=== PATIENT | male | born 1990 | race African-American/Black ===

== ENCOUNTER 2021-10-22 08:19 | Emergency (ER) | payer SELFPAY ==
[~2021-10-22] VITALS: Ht 180.3 cm; Wt 79.0 kg
[2021-10-22 09:41] VITALS: BP 140/92
[2021-10-22] MEDS ORDERED: IBUPROFEN 200 MG TABLET. PO ONE (10:15)
--- NOTE | 2021-10-22 10:21 | PHYS DOC ---
Past Medical History Past Surgical History: No Surgical History General Adult EDM: Chief Complaint: HAND PROBLEM HPI: HPI: Patient is a 30 year old male who presents with right hand pain after punching a barbecue grill last night. Patient has full range of motion and sensation intact. Some swelling noted . Denies wrist pain. Rating his pain at 7/10. Pain is aggravated by use. Patient took one Tylenol last night which improved symptoms. Denies medical history. Review of Systems: Review of Systems: ROS At least 10 ROS systems have been reviewed and are negative except as documented in the HPI. General: Negative except as outlined in HPI above. Skin: Negative except as outlined in HPI above. HEENT: Negative except as outlined in HPI above. Neck: Negative except as outlined in HPI above. Respiratory: Negative except as outlined in HPI above.. Cardiovascular: Negative except as outlined in HPI above. Abdomen: Negative except as outlined in HPI above. : Negative except as outlined in HPI above. Back/MSK: Negative except as outlined in HPI above. Neuro: Negative except as outlined in HPI above. Psych: Negative except as outlined in HPI above. Heart Score: C/O Chest Pain: No Risk Factors: Risk Factors: DM, Current or recent (<one month) smoker, HTN, HLP, family history of CAD, obesity. Risk Scores: Score 0 - 3: 2.5% MACE over next 6 weeks - Discharge Home Score 4 - 6: 20.3% MACE over next 6 weeks - Admit for Clinical Observation Score 7 - 10: 72.7% MACE over next 6 weeks - Early Invasive Strategies Allergies: Allergies: Allergies Coded Allergies Type Severity Reaction Last Updated Verified No Known Drug Allergies 10/22/21 No Physical Exam: PE: Constitutional: Well developed, well nourished, no acute distress, non-toxic appearance. [] HENT: Normocephalic, atraumatic, bilateral external ears normal, oropharynx moist, no oral exudates, nose normal. [] Eyes: PERRLA, EOMI, conjunctiva normal, no discharge. [] Neck: Normal range of motion, no tenderness, supple, no stridor. [] Cardiovascular:Heart rate regular rhythm, no murmur [] Lungs & Thorax: Bilateral breath sounds clear to auscultation [] Abdomen: Bowel sounds normal, soft, no tenderness, no masses, no pulsatile mas ses. [] Skin: Warm, dry, no erythema, no rash. [] Back: No tenderness, no CVA tenderness. [] Extremities: Right hand tenderness, ROM intact, some swelling noted, radial pulses intact Neurologic: Alert and oriented X 3, normal motor function, normal sensory function, no focal deficits noted. [] Psychologic: Affect normal, judgement normal, mood normal. [] Current Patient Data: Vital Signs: Vital Signs Date Time Temp Pulse Resp B/P (MAP) Pulse Ox O2 Delivery O2 Flow Rate FiO2 10/22/21 09:41 98.3 65 16 140/92 (108) 100 Room Air 98.3 EKG: EKG: [] Radiology/Procedures: Radiology/Procedures: [] XR HAND_RIGHT 3 VIEWS History: Reason: punched a bbq grill Friday, pain and swelling / Spl. Instructions: / History: Technique: 3 views right hand Comparison: None. Findings: Acute fifth metacarpal base nondisplaced intra-articular fracture. There is adjacent soft tissue swelling. No dislocation. Impression: 1. Acute fifth metacarpal base nondisplaced intra-articular fracture. Electronically signed by: Abdi Lopez DO (10/22/2021 10:47 AM) [id number] Course & Med Decision Making: Course & Med Decision Making Pertinent Labs and Imaging studies reviewed. (See chart for details) [] 30-year-old male who presents with right hand pain after punching a barbecue grill last night. Pain was treated in the ER. X-ray of right hand ordered to rule out fracture. X-ray shows nondisplaced, fifth metacarpal fracture. Middle finger and ring finger were marisol taped. Educated patient on RICE. Ibuprofen at home for discomfort. Advised patient to follow-up with PCP if pain continues. Patient requesting a work note for today. Patient verbalizes he understands discharge instructions. Dragon Disclaimer: [place] Disclaimer: This electronic medical record was generated, in whole or in part, using a voice recognition dictation system. Departure Departure Impression: Primary Impression: Fracture of fifth metacarpal bone of right hand Qualified Codes: S62.306A - Unspecified fracture of fifth metacarpal bone, right hand, initial encounter for closed fracture Disposition: HOME / SELF CARE / HOMELESS Condition: STABLE Referrals: NO PCP (PCP) Patient Instructions: Boxer's Fracture, RICE - Routine Care for Injuries, [id number] Additional Instructions: You were seen in the emergency room for right hand pain after punching a barbecue grill. X-ray shows a fracture of the fifth, metacarpal. To help with pain and swelling use ice to the injured area, elevate. Ibuprofen for pain. Please follow-up with your PCP if pain does not improve. Return to the [facility] room with worsening symptoms or concerns. EMERGENCY DEPARTMENT GENERAL DISCHARGE INSTRUCTIONS Thank you for coming to [facility] Emergency Department (ED) today and trusting us with you care. We trust that you had a positive experience in our Emergency Department. If you wish to speak to the department management, you may call the Director at [phone]. YOUR FOLLOW UP INSTRUCTIONS ARE FOLLOWS: 1. Do you have a private Doctor? If you do not have a private doctor, please ask for a resource list of physicians or clinics that may be able to assist you with follow up care. 2. The Emergency Physicain has interpreted your x-rays. The X-Ray specialist will also review them. If there is a change in the findings, you will be notified in 48 hours when at all possible. 3. A lab test or culture has been done, your results will be reviewed and you will be notified if you need a change in treatment. ADDITIONAL INSTRUCTIONS AND INFORMATION: 1. Your care today has been supervised by a physician who is specially trained in emergency care. Many problems require more than one evaluation for a complete diagnosis and treatment. We recommend that you schedule your follow up appointment as recommended to ensure complete treatment of you illness or injury. If you are unable to obtain follow up care and continue to have a problem, or if your condition worsens, we recommend that you return to the ED. 2. We are not able to safely determine your condition over the phone nor are we able to give sound medical advice over the phone. For these safety reasons, if you call for medical advice we will ask you to come to the ED for further evaluation. 3. If you have any questions regarding these discharge instructions please call the ED at [phone]. SAFETY INFORMATION: In the interest of safety, wellness, and injury prevention; we encourage you to wear your sealbelt, if you smoke; quite smoking, and we encourage family to use a protective helmet for bicycling and other sporting events that present an increased risk for head injury. IF YOUR SYMPTOMS WORSEN OR NEW SYMPTOMS DEVELOP, OR YOU HAVE CONCERNS ABOUT YOUR CONDITION; OR IF YOUR CONDITION WORSENS WHILE YOU ARE WAITING FOR YOUR FOLLOW UP APPOINTMENT; EITHER CONTACT YOUR PRIMARY CARE DOCTOR, THE PHYSICIAN WHOSE NAME AND NUMBER YOU WERE GIVEN, OR RETURN TO THE ED IMMEDIATELY. RAKEL APARICIO APRN Oct 22, 2021 10:21
--- NOTE | 2021-10-22 10:50 | RAD ---
XR HAND_RIGHT 3 VIEWS History: Reason: punched a bbq grill Friday, pain and swelling / Spl. Instructions: / History: Technique: 3 views right hand Comparison: None. Findings: Acute fifth metacarpal base nondisplaced intra-articular fracture. There is adjacent soft tissue swel ling. No dislocation. Impression: 1. Acute fifth metacarpal base nondisplaced intra-articular fracture. Electronically signed by: Abdi Lopez DO (10/22/2021 10:47 AM) [id number]
== END 2021-10-22 11:35 | disposition home or self-care (01) ==
LOC: ER 08:19
DX: S62.306A Unspecified fracture of fifth metacarpal bone, right hand, initial encounter for closed fracture (principal); W22.8XXA Striking against or struck by other objects, initial encounter; Y93.89 Activity, other specified; Y92.89 Other specified places as the place of occurrence of the external cause; Y99.8 Other external cause status
CPT/HCPCS: 73130; 99283